=== PATIENT | female | born 1955 | race Caucasian/White ===

== ENCOUNTER 2020-10-15 14:46 | Inpatient (IN) ==
[2020-10-22] MEDS: Ipratropium/Albuterol Neb 3 ML IH SCH ×3 (16:04→23:07)
[2020-10-22] MEDS: Budesonide/Formoterol 160/4.5 1 PUFF INH IH SCH (19:15)
[2020-10-22] MEDS: Sennosides/Docusate Sodium TABLET PO SCH (21:09)
[2020-10-22] MEDS: Gabapentin 300 MG CAPSULE PO SCH (21:10)
[2020-10-22] MEDS: ceFAZolin 1,000 MG in Water for inj. (sterile) 10 ML IVPB SCH (21:10)
[2020-10-22] MEDS: *HR* HYDROcodone/Acet 7.5/325 mg TABLET PO PRN (21:22)
[2020-10-23] MEDS: Ipratropium/Albuterol Neb 3 ML IH SCH ×5 (03:09→21:47)
[2020-10-23] MEDS: *HR* HYDROcodone/Acet 7.5/325 mg TABLET PO PRN ×2 (03:23→11:27)
[2020-10-23] MEDS: ceFAZolin 1,000 MG in Water for inj. (sterile) 10 ML IVPB SCH ×3 (05:29→20:31)
[2020-10-23 05:42] LABS: Basophils % 0.5 %; Eosinophils # 0.2 K/mcL (0.0-0.6); Eosinophils % 2.7 %; Hematocrit 28.6 % (35.3-44.9); Hemoglobin 8.9 g/dL (11.5-15.4); Immature Granulocytes % 0.5 % (0-4); Lymphocytes # 1.1 K/mcL (0.6-4.6); Lymphocytes % 14.7 %; Mean Corpuscular HGB Conc 31.1 g/dL (31.6-35.5); Mean Corpuscular Hemoglobin 28.7 pg (28.0-33.3); Mean Corpuscular Volume 92.3 fL (83.0-100.0); Mean Platelet Volume 10.1 fL (9.4-12.4); Monocytes # 0.7 K/mcL (0.0-1.3); Monocytes % 9.6 %; Neutrophils # 5.5 K/mcL (1.6-8.9); Platelet Count 327 K/mcL (140-400); Red Cell Distribution Width 14.8 % (11.5-14.5); White Blood Count 7.7 K/mcL (4.3-11.1)
[2020-10-23 06:03] LABS: BUN/Creatinine Ratio 25 (6-26); Blood Urea Nitrogen 11 mg/dL (8-23); Calcium 8.3 mg/dL (8.6-10.3); Carbon Dioxide 30 mEq/L (23-29); Chloride 94 mEq/L (98-107); Glucose 133 mg/dL (70-105); Osmolality,Calculated 273 (280-300); Potassium 3.8 mEq/L (3.5-5.1); Sodium 131 mEq/L (136-145); eGFR For African Americans > 60 (> 60); eGFR For Non-African Americans > 60 (> 60)
[2020-10-23] MEDS: *HR* Enoxaparin 40 MG/0.4 ML SYRINGE SQ SCH (06:17)
[2020-10-23] MEDS: Budesonide/Formoterol 160/4.5 1 PUFF INH IH SCH ×2 (07:40→21:50)
[2020-10-23] MEDS: Tiotropium 10 INH DOSE IH SCH (07:42)
[2020-10-23] MEDS: polyethylene glycoL 3350 17 GM POWD.PACK PO SCH (08:06)
[2020-10-23] MEDS: Gabapentin 300 MG CAPSULE PO SCH ×3 (08:07→20:31)
[2020-10-23] MEDS: Aspirin 81 MG TAB.CHEW PO SCH (08:07)
[2020-10-23] MEDS: Sennosides/Docusate Sodium TABLET PO SCH ×2 (08:07→20:31)
[2020-10-23] MEDS: Isosorbide MONOnitrate (24 HR) 30 MG TAB.ER.24H PO SCH (08:07)
[2020-10-23] MEDS: Furosemide 20 MG TABLET PO SCH (08:07)
[2020-10-23] MEDS: Iron Sucrose Complex 200 MG in 0.9 % Sodium Chloride 100 ML IVPB SCH (08:52)
[2020-10-23] MEDS ORDERED: NON-FORMULARY MEDICATION 1 EACH EACH (Fluticasone/Umeclidin/Vilanter [Trelegy Ellipta 100- IH SCH (09:00)
[2020-10-24] MEDS: Ipratropium/Albuterol Neb 3 ML IH SCH ×6 (01:14→19:58)
[2020-10-24] MEDS: *HR* HYDROcodone/Acet 7.5/325 mg TABLET PO PRN ×3 (02:58→15:49)
[2020-10-24] MEDS: ceFAZolin 1,000 MG in Water for inj. (sterile) 10 ML IVPB SCH ×3 (05:12→20:15)
[2020-10-24] MEDS: *HR* Enoxaparin 40 MG/0.4 ML SYRINGE SQ SCH (05:14)
[2020-10-24] MEDS: Budesonide/Formoterol 160/4.5 1 PUFF INH IH SCH ×2 (08:28→19:58)
[2020-10-24] MEDS: Tiotropium 10 INH DOSE IH SCH (08:29)
[2020-10-24] MEDS: Iron Sucrose Complex 200 MG in 0.9 % Sodium Chloride 100 ML IVPB SCH (08:35)
[2020-10-24] MEDS: polyethylene glycoL 3350 17 GM POWD.PACK PO SCH (08:37)
[2020-10-24] MEDS: Gabapentin 300 MG CAPSULE PO SCH ×3 (08:37→20:16)
[2020-10-24] MEDS: Sennosides/Docusate Sodium TABLET PO SCH ×2 (08:37→20:15)
[2020-10-24] MEDS: Isosorbide MONOnitrate (24 HR) 30 MG TAB.ER.24H PO SCH (08:38)
[2020-10-24] MEDS: Aspirin 81 MG TAB.CHEW PO SCH (08:38)
[2020-10-24] MEDS: Furosemide 20 MG TABLET PO SCH (08:38)
[2020-10-24 12:21] LABS: Basophils # 0.1 K/mcL (0.0-0.2); Basophils % 0.5 %; Eosinophils # 0.2 K/mcL (0.0-0.6); Eosinophils % 1.7 %; Hematocrit 33.1 % (35.3-44.9); Hemoglobin 10.4 g/dL (11.5-15.4); Immature Granulocytes % 0.3 % (0-4); Lymphocytes # 1.6 K/mcL (0.6-4.6); Lymphocytes % 16.7 %; Mean Corpuscular HGB Conc 31.4 g/dL (31.6-35.5); Mean Corpuscular Volume 92.2 fL (83.0-100.0); Monocytes # 0.7 K/mcL (0.0-1.3); Monocytes % 7.5 %; Neutrophils # 6.8 K/mcL (1.6-8.9); Platelet Count 397 K/mcL (140-400); Red Blood Count 3.59 M/mcL (3.82-4.97); Red Cell Distribution Width 14.6 % (11.5-14.5); Segmented Neutrophils % 73.3 %; White Blood Count 9.3 K/mcL (4.3-11.1)
[2020-10-24 12:30] LABS: BUN/Creatinine Ratio 17 (6-26); Blood Urea Nitrogen 10 mg/dL (8-23); Calcium 8.5 mg/dL (8.6-10.3); Carbon Dioxide 28 mEq/L (23-29); Chloride 97 mEq/L (98-107); Glucose 148 mg/dL (70-105); Magnesium 1.8 mg/dL (1.6-2.6); Osmolality,Calculated 284 (280-300); Potassium 4.1 mEq/L (3.5-5.1); Sodium 136 mEq/L (136-145); eGFR For African Americans > 60 (> 60); eGFR For Non-African Americans > 60 (> 60)
[2020-10-25] MEDS: Ipratropium/Albuterol Neb 3 ML IH SCH ×7 (00:22→23:53)
[2020-10-25] MEDS: ceFAZolin 1,000 MG in Water for inj. (sterile) 10 ML IVPB SCH ×3 (05:08→20:15)
[2020-10-25] MEDS: *HR* Enoxaparin 40 MG/0.4 ML SYRINGE SQ SCH (05:09)
[2020-10-25] MEDS: Isosorbide MONOnitrate (24 HR) 30 MG TAB.ER.24H PO SCH (08:34)
[2020-10-25] MEDS: Sennosides/Docusate Sodium TABLET PO SCH ×2 (08:34→20:14)
[2020-10-25] MEDS: Gabapentin 300 MG CAPSULE PO SCH ×3 (08:34→20:15)
[2020-10-25] MEDS: Aspirin 81 MG TAB.CHEW PO SCH (08:34)
[2020-10-25] MEDS: polyethylene glycoL 3350 17 GM POWD.PACK PO SCH (08:35)
[2020-10-25] MEDS: Furosemide 20 MG TABLET PO SCH (08:35)
[2020-10-25] MEDS: Iron Sucrose Complex 200 MG in 0.9 % Sodium Chloride 100 ML IVPB SCH (08:35)
[2020-10-25] MEDS: *HR* HYDROcodone/Acet 7.5/325 mg TABLET PO PRN (08:40)
[2020-10-25] MEDS: Tiotropium 10 INH DOSE IH SCH (08:57)
[2020-10-25] MEDS: Budesonide/Formoterol 160/4.5 1 PUFF INH IH SCH ×2 (08:58→20:06)
[2020-10-26] MEDS: Ipratropium/Albuterol Neb 3 ML IH SCH ×5 (04:27→20:39)
[2020-10-26] MEDS: *HR* HYDROcodone/Acet 7.5/325 mg TABLET PO PRN ×3 (05:30→21:03)
[2020-10-26] MEDS: *HR* Enoxaparin 40 MG/0.4 ML SYRINGE SQ SCH (05:31)
[2020-10-26] MEDS: ceFAZolin 1,000 MG in Water for inj. (sterile) 10 ML IVPB SCH ×2 (05:31→15:06)
[2020-10-26] MEDS: Gabapentin 300 MG CAPSULE PO SCH ×3 (08:35→21:01)
[2020-10-26] MEDS: Isosorbide MONOnitrate (24 HR) 30 MG TAB.ER.24H PO SCH (08:35)
[2020-10-26] MEDS: Sennosides/Docusate Sodium TABLET PO SCH ×2 (08:35→21:01)
[2020-10-26] MEDS: polyethylene glycoL 3350 17 GM POWD.PACK PO SCH (08:36)
[2020-10-26] MEDS: Furosemide 20 MG TABLET PO SCH (08:36)
[2020-10-26] MEDS: Aspirin 81 MG TAB.CHEW PO SCH (08:36)
[2020-10-26] MEDS ORDERED: Saline Nasal Spray 44 ML BOTTLE NS PRN (10:52)
[2020-10-26] MEDS: Budesonide/Formoterol 160/4.5 1 PUFF INH IH SCH (11:42)
[2020-10-26] MEDS: Tiotropium 10 INH DOSE IH SCH (11:42)
[2020-10-26] MEDS ORDERED: Ondansetron 4 MG/2 ML VIAL IVP PRN (11:48)
[2020-10-26] MEDS ORDERED: Ondansetron ODT 4 MG TAB.RAPDIS SL PRN (11:49)
[2020-10-26] MEDS: ceFAZolin 2,000 MG in Water for inj. (sterile) 20 ML IVPB SCH ×2 (14:52→21:02)
[2020-10-26] MEDS: Fluticasone Propionate Nasal 50 MCG/SPRAY BOTTLE NS SCH (15:03)
[2020-10-27] MEDS: Ipratropium/Albuterol Neb 3 ML IH SCH ×4 (03:55→22:38)
[2020-10-27] MEDS: ceFAZolin 2,000 MG in Water for inj. (sterile) 20 ML IVPB SCH ×3 (04:50→20:09)
[2020-10-27] MEDS: *HR* Enoxaparin 40 MG/0.4 ML SYRINGE SQ SCH (04:52)
[2020-10-27] MEDS: *HR* HYDROcodone/Acet 7.5/325 mg TABLET PO PRN ×2 (04:58→14:22)
[2020-10-27 05:13] LABS: Hematocrit 30.6 % (35.3-44.9); Hemoglobin 9.5 g/dL (11.5-15.4); Mean Corpuscular Hemoglobin 28.6 pg (28.0-33.3); Mean Corpuscular Volume 92.2 fL (83.0-100.0); Platelet Count 354 K/mcL (140-400); Red Blood Count 3.32 M/mcL (3.82-4.97); White Blood Count 7.1 K/mcL (4.3-11.1)
[2020-10-27 05:29] LABS: Alanine Aminotransferase 27 Units/L (7-52); Albumin 2.8 g/dL (3.5-5.7); Albumin/Globulin Ratio 0.6 (1.1-2.2); Alkaline Phosphatase 98 Units/L (34-104); Aspartate Amino Transferase 25 Units/L (13-39); BUN/Creatinine Ratio 19 (6-26); Bilirubin,Total 0.3 mg/dL (0.3-1.0); Blood Urea Nitrogen 9 mg/dL (8-23); Calcium 8.8 mg/dL (8.6-10.3); Carbon Dioxide 30 mEq/L (23-29); Chloride 98 mEq/L (98-107); Globulin 4.4 g/dL (2.4-3.5); Glucose 106 mg/dL (70-105); Magnesium 1.7 mg/dL (1.6-2.6); Osmolality,Calculated 281 (280-300); Potassium 3.9 mEq/L (3.5-5.1); Sodium 136 mEq/L (136-145); Total Protein 7.2 g/dL (6.4-8.9); eGFR For African Americans > 60 (> 60); eGFR For Non-African Americans > 60 (> 60)
[2020-10-27 08:31] LABS: % Iron Saturation 15 % (15-50); Iron 25 mcg/dL (50-170); Transferrin 122 mg/dL (203-362)
[2020-10-27] MEDS: Furosemide 20 MG TABLET PO SCH (08:53)
[2020-10-27] MEDS: Aspirin 81 MG TAB.CHEW PO SCH (08:53)
[2020-10-27] MEDS: polyethylene glycoL 3350 17 GM POWD.PACK PO SCH (08:53)
[2020-10-27] MEDS: Gabapentin 300 MG CAPSULE PO SCH ×3 (08:53→20:09)
[2020-10-27] MEDS: Isosorbide MONOnitrate (24 HR) 30 MG TAB.ER.24H PO SCH (08:53)
[2020-10-27] MEDS: Sennosides/Docusate Sodium TABLET PO SCH ×2 (08:53→20:09)
[2020-10-27] MEDS: Fluticasone Propionate Nasal 50 MCG/SPRAY BOTTLE NS SCH (08:54)
[2020-10-27] MEDS ORDERED: Acetaminophen 325 MG TABLET PO PRN (10:52)
[2020-10-27] MEDS ORDERED: Ibuprofen 400 MG TABLET PO PRN (10:52)
[2020-10-28] MEDS: Ipratropium/Albuterol Neb 3 ML IH SCH ×4 (04:03→21:55)
[2020-10-28] MEDS: *HR* Enoxaparin 40 MG/0.4 ML SYRINGE SQ SCH (05:24)
[2020-10-28] MEDS: ceFAZolin 2,000 MG in Water for inj. (sterile) 20 ML IVPB SCH ×2 (05:25→13:19)
[2020-10-28] MEDS: polyethylene glycoL 3350 17 GM POWD.PACK PO SCH (08:02)
[2020-10-28] MEDS: Sennosides/Docusate Sodium TABLET PO SCH ×2 (08:03→21:07)
[2020-10-28] MEDS: Gabapentin 300 MG CAPSULE PO SCH ×3 (08:03→21:07)
[2020-10-28] MEDS: Aspirin 81 MG TAB.CHEW PO SCH (08:03)
[2020-10-28] MEDS: Isosorbide MONOnitrate (24 HR) 30 MG TAB.ER.24H PO SCH (08:03)
[2020-10-28] MEDS: *HR* HYDROcodone/Acet 7.5/325 mg TABLET PO PRN ×2 (08:03→21:08)
[2020-10-28] MEDS: Furosemide 20 MG TABLET PO SCH (08:03)
[2020-10-28] MEDS: Fluticasone Propionate Nasal 50 MCG/SPRAY BOTTLE NS SCH (12:58)
[2020-10-28] MEDS: tiZANidine 4 MG TABLET PO PRN (13:19)
[2020-10-29] MEDS: Ipratropium/Albuterol Neb 3 ML IH SCH ×4 (03:45→22:10)
[2020-10-29] MEDS: *HR* Enoxaparin 40 MG/0.4 ML SYRINGE SQ SCH (05:55)
[2020-10-29] MEDS: *HR* HYDROcodone/Acet 7.5/325 mg TABLET PO PRN ×2 (06:01→20:53)
[2020-10-29] MEDS: Sennosides/Docusate Sodium TABLET PO SCH ×2 (08:34→20:52)
[2020-10-29] MEDS: Isosorbide MONOnitrate (24 HR) 30 MG TAB.ER.24H PO SCH (08:34)
[2020-10-29] MEDS: Gabapentin 300 MG CAPSULE PO SCH ×3 (08:34→20:52)
[2020-10-29] MEDS: Aspirin 81 MG TAB.CHEW PO SCH (08:34)
[2020-10-29] MEDS: Furosemide 20 MG TABLET PO SCH (08:35)
[2020-10-29] MEDS: polyethylene glycoL 3350 17 GM POWD.PACK PO SCH (08:36)
[2020-10-29] MEDS: Fluticasone Propionate Nasal 50 MCG/SPRAY BOTTLE NS SCH (08:37)
[2020-10-29] MEDS: tiZANidine 4 MG TABLET PO PRN (14:45)
[2020-10-29] MEDS ORDERED: GuaiFENesin/Pseudophedrine TABLET PO PRN (16:03)
[2020-10-30] MEDS: Ipratropium/Albuterol Neb 3 ML IH SCH ×2 (03:35→08:25)
[2020-10-30] MEDS: *HR* Enoxaparin 40 MG/0.4 ML SYRINGE SQ SCH (05:49)
[2020-10-30] MEDS: *HR* HYDROcodone/Acet 7.5/325 mg TABLET PO PRN (05:50)
[2020-10-30 07:23] VITALS: BP 109/69
[2020-10-30] MEDS: Furosemide 20 MG TABLET PO SCH (08:13)
[2020-10-30] MEDS: Sennosides/Docusate Sodium TABLET PO SCH (08:13)
[2020-10-30] MEDS: Fluticasone Propionate Nasal 50 MCG/SPRAY BOTTLE NS SCH (08:14)
[2020-10-30] MEDS: Aspirin 81 MG TAB.CHEW PO SCH (08:14)
[2020-10-30] MEDS: Isosorbide MONOnitrate (24 HR) 30 MG TAB.ER.24H PO SCH (08:15)
[2020-10-30] MEDS: Gabapentin 300 MG CAPSULE PO SCH (08:15)
[2020-10-30] MEDS: polyethylene glycoL 3350 17 GM POWD.PACK PO SCH (08:16)
== END 2020-10-30 11:02 | disposition home health service (06) | DRG 178 ==
LOC: INPGRE 10-22 15:22
PROVIDERS: ADMIT Family Medicine; ATTEND Family Medicine